=== PATIENT | female | born 1945 | race Caucasian/White ===

== ENCOUNTER 2021-07-20 07:51 | Emergency (ER) | payer MEDICARE ==
[~2021-07-20] VITALS: Ht 162.6 cm; Wt 78.9 kg
[2021-07-20 07:51] VITALS: BP_SYST 176
--- NOTE | 2021-07-20 07:51 | NUR ---
BROUGHT IN BY [facility] AND PLACED IN BED #4 AND TRIAGED. REPORT GIVEN TO VIRI
--- NOTE | 2021-07-20 08:05 | NUR ---
Pt. bib BLS post a fall and hitting tailbone and back of head, superficial laceration noted to back of head, pt. states has had vertigo in past and ussually has a warning before it gets bad and today suddenly became dizzy and went down, does rate pain to tailbone 10/10. Accu check done, bs 80.
--- NOTE | 2021-07-20 08:15 | NUR ---
Irrigated laceration to head with NS, bleeding minimum.
--- NOTE | 2021-07-20 08:20 | NUR ---
ER at bedside examining patient.
[2021-07-20] MEDS ORDERED: NACL 0.9% 1,000 ML IV ONE (08:30)
[2021-07-20 08:56] LABS: BASOPHILS % (AUTO) 0.6 % (0.0-2.0); EOSINOPHILS # (AUTO) 0.2 K/uL (0.0-0.4); HEMATOCRIT 41.2 % (36-48); HEMOGLOBIN 13.8 g/dL (12.0-16.0); LYMPHOCYTES # (AUTO) 1.4 K/uL (1.0-5.5); LYMPHOCYTES % (AUTO) 16.3 % (20.5-51.5); MEAN CORPUSCULAR HEMOGLOBIN 32 pg (27-31); MEAN CORPUSCULAR HGB CONC 34 % (32-36); MEAN CORPUSCULAR VOLUME 95 fL (79.0-98.0); MONOCYTES # (AUTO) 0.8 K/uL (0.0-1.0); NEUTROPHILS # (AUTO) 6.1 K/uL (1.8-7.7); NEUTROPHILS % (AUTO) 72.1 % (40.0-70.0); PLATELET COUNT (AUTO) 179 K/uL (130-430); RED BLOOD CELL COUNT(AUTO) 4.36 MIL/uL (4.2-6.2); RED CELL DISTRIBUTION WIDTH 14.1 % (9.0-15.0); WHITE BLOOD COUNT (AUTO) 8.5 K/uL (4.8-10.8)
[2021-07-20 09:20] LABS: INR 0.9 (0.8-1.2); PROTHROMBIN TIME 9.9 SECS (9.5-12.5)
--- NOTE | 2021-07-20 09:23 | NUR ---
Patient transported to radiology via wheelchair, accompanied by staff, for CT scan.
[2021-07-20 09:59] LABS: ANION GAP 4 (5-15); CALCIUM 8.9 mg/dL (8.4-11.0); CHLORIDE 106 mmol/L (98-107); CREATININE 0.79 mg/dL (0.55-1.30); GLUCOSE 96 mg/dL (70-99); POTASSIUM 3.9 mmol/L (3.5-5.1); SODIUM SERUM 142 mmol/L (136-145); UREA NITROGEN, BLOOD 14 mg/dL (8-21)
[2021-07-20 10:04] LABS: ALANINE AMINOTRANSFERASE 38 U/L (12-78); ALBUMIN 3.3 g/dL (3.4-4.8); ASPARTATE AMINOTRANSFERASE 29 U/L (10-37); TOTAL BILIRUBIN 0.5 mg/dL (0.0-1.0)
[2021-07-20] MEDS ORDERED: HYDROcodone/ACETAMIN 7.5-325 MG TAB PO ONE (10:15)
[2021-07-20 10:17] LABS: BILIRUBIN,URINE NEGATIVE (NEGATIVE); CLARITY/URINE CLEAR (CLEAR); COLOR,URINE YELLOW (YELLOW); GLUCOSE,URINE NEGATIVE (NEGATIVE); KETONES,URINE NEGATIVE (NEGATIVE); LEUKOCYTE ESTERASE ,URINE NEGATIVE (NEGATIVE); NITRITE, URINE NEGATIVE (NEGATIVE); PH,URINE 7.5 (5.0-8.0); PROTEIN URINE NEGATIVE (NEGATIVE); UROBILINOGEN,URINE 0.2 (0.2-1.0)
[2021-07-20 10:18] LABS: BLOOD, URINE TRACE (NEGATIVE)
[2021-07-20 10:28] LABS: BACTERIA,URINE RARE /HPF (None Seen); MUCUS,URINE 1+ /LPF (None Seen); RBC,URINE 0-3 /HPF (0-3); WBC,URINE 0-3 /HPF (0-3)
--- NOTE | 2021-07-20 12:00 | NUR ---
Patient given written and verbal discharge instructions and verbalizes understanding. ER Dr. Cabrera discussed with patient the results and treatment provided. Patient in stable condition. ID arm band removed. IV catheter removed intact and dressing applied, no active bleeding. Patient educated on pain management and to follow up with PMD. Pain Scale 3. Opportunity for questions provided and answered. Medication side effect fact sheet provided.
[2021-07-20 12:02] VITALS: BP_SYST 135
== END 2021-07-20 12:02 | disposition home or self-care (01) ==
LOC: SED 07:51
DX: S01.01XA Laceration without foreign body of scalp, initial encounter (principal); S30.0XXA Contusion of lower back and pelvis, initial encounter; R42 Dizziness and giddiness; I10 Essential (primary) hypertension; Z79.899 Other long term (current) drug therapy; W18.39XA Other fall on same level, initial encounter; Y93.89 Activity, other specified; Y92.89 Other specified places as the place of occurrence of the external cause; Y99.8 Other external cause status
CPT/HCPCS: 36415; 70450; 71045; 72192; 76376; 80053; 81000; 82962; 84484; 85025; 85610; 85730; 93005; 96360; 99285; J7030

== ENCOUNTER 2021-09-12 21:38 | Inpatient (IN) | payer MEDICARE, SELFPAY ==
[~2021-09-12] VITALS: Ht 160 cm; Wt 78.5 kg
[2021-09-12 21:46] VITALS: BP_SYST 168
--- NOTE | 2021-09-12 21:46 | NUR ---
Patient to ER bed 8 to gown for evaluation. Side rails up.
--- NOTE | 2021-09-12 21:47 | NUR ---
PATIENT BROUGHT IN AMBULATORY FROM HOME COMPLAINING OF SHORTNESS OF BREATH STARTING AT 1600 TODAY AND THE STOPPED. THEN PATIENT WAS GETTING READY FOR BED PATIENT REPORTS SOB STARTED AGAIN WITH PALPITATIONS AND LIGHTHEADEDNESS. DENIES ANY CHEST PAIN, FEVER, NAUSEA, VOMITING OR DIARRHEA. DENIES ANY PAIN. PATIENT ABLE TO SPEAK FULL SENTENCES. HR IS 33BPM AND EKG SHOWED HEART BLOCK . PATIENT PLACED ON CHEMISTRY TECHNICAL OFFICER. PATIENT DENIES ANY OTHER SYMPTOMS/INJURIES PER PATIENT OR NOTED. WILL CONTINUE TO MONITOR.
--- NOTE | 2021-09-12 21:50 | NUR ---
# 18 gauge angiocath placed to LEFT AC. Use of asceptic technique. Opsite placed over site. Blood return noted. Blood for lab drawn from site. Flushed with 10 cc of normal saline. No evidence of infiltration noted. Patient tolerated well.
--- NOTE | 2021-09-12 21:51 | NUR ---
ER Dr. Gaspar at bedside examining patient.
--- NOTE | 2021-09-12 22:07 | NUR ---
ER Dr. METZGER at bedside examining patient.
[2021-09-12 22:14] LABS: BASOPHILS # (AUTO) 0.1 K/uL (0.0-0.2); BASOPHILS % (AUTO) 0.9 % (0.0-2.0); EOSINOPHILS # (AUTO) 0.2 K/uL (0.0-0.4); EOSINOPHILS % (AUTO) 1.8 % (0.0-4.0); HEMATOCRIT 43.9 % (36-48); HEMOGLOBIN 14.8 g/dL (12.0-16.0); LYMPHOCYTES # (AUTO) 2.5 K/uL (1.0-5.5); MEAN CORPUSCULAR HEMOGLOBIN 32 pg (27-31); MEAN CORPUSCULAR HGB CONC 34 % (32-36); MEAN CORPUSCULAR VOLUME 95 fL (79.0-98.0); MONOCYTES # (AUTO) 0.9 K/uL (0.0-1.0); MONOCYTES % (AUTO) 9.1 % (1.7-9.3); NEUTROPHILS # (AUTO) 5.9 K/uL (1.8-7.7); NEUTROPHILS % (AUTO) 62.2 % (40.0-70.0); PLATELET COUNT (AUTO) 219 K/uL (130-430); RED BLOOD CELL COUNT(AUTO) 4.65 MIL/uL (4.2-6.2); RED CELL DISTRIBUTION WIDTH 14.1 % (9.0-15.0); WHITE BLOOD COUNT (AUTO) 9.5 K/uL (4.8-10.8)
[2021-09-12 22:22] LABS: INR 0.9 (0.8-1.2); PROTHROMBIN TIME 9.4 SECS (9.5-12.5)
[2021-09-12 22:30] LABS: ANION GAP 13 (5-15); CALCIUM 8.7 mg/dL (8.4-11.0); CHLORIDE 106 mmol/L (98-107); GLUCOSE 133 mg/dL (70-99); POTASSIUM 4.1 mmol/L (3.5-5.1); SODIUM SERUM 142 mmol/L (136-145); UREA NITROGEN, BLOOD 19 mg/dL (8-21)
[2021-09-12 22:35] LABS: ALANINE AMINOTRANSFERASE 128 U/L (12-78); ALBUMIN 3.8 g/dL (3.4-4.8); ASPARTATE AMINOTRANSFERASE 164 U/L (10-37); TOTAL BILIRUBIN 0.5 mg/dL (0.0-1.0)
[2021-09-12] MEDS ORDERED: LORA10TA7 PO (22:48)
[2021-09-12] MEDS ORDERED: TRAZ-250 PO (22:48)
[2021-09-12] MEDS ORDERED: ASPI-1393 PO (22:48)
[2021-09-12] MEDS ORDERED: LISI10TA29 PO (22:48)
[2021-09-12] MEDS ORDERED: LIP40 PO (22:48)
--- NOTE | 2021-09-12 22:49 | NUR ---
Medication reconciliation completed with information provided by patient. Any prior medication reconciliation on file was reviewed and corrected.
[2021-09-13] VITALS (9 sets, daily range): BP systolic 107–148
--- NOTE | 2021-09-13 02:28 | NUR ---
patient moved to hospital bed.
--- NOTE | 2021-09-13 02:37 | NUR ---
Patient will be admitted to care of DR. KENDALL. Admitted to ICU unit. ICU HOLD. Complete and up to date summary report printed. SBAR report to be given at bedside with opportunity for questions.
--- NOTE | 2021-09-13 02:45 | NUR ---
Patient is Full Code
--- NOTE | 2021-09-13 03:30 | NUR ---
Patient resting quietly. No acute distress noted. Vital signs within normal range.
--- NOTE | 2021-09-13 04:32 | NUR ---
Patient resting quietly. No acute distress noted. Vital signs within normal range.
--- NOTE | 2021-09-13 05:32 | NUR ---
Patient resting quietly. No acute distress noted. Vital signs within normal range.
--- NOTE | 2021-09-13 06:07 | NUR ---
report given to NIGEL Odell
--- NOTE | 2021-09-13 06:50 | NUR ---
Dr. Kenney at bedside examining patient
--- NOTE | 2021-09-13 07:02 | NUR ---
report given to NIGEL Hernandez for continuation of care.
--- NOTE | 2021-09-13 07:43 | NUR ---
Dr. Thomas at bedside examining pt.
--- NOTE | 2021-09-13 08:03 | NUR ---
MRSA swab performed at bedside and sent to lab.
--- NOTE | 2021-09-13 08:34 | NUR ---
Spoke with Dr. Redd and updated on pt condition.
[2021-09-13] MEDS: NACL 0.9% 1,000 ML IV SCH ×2 (09:24→19:46)
--- NOTE | 2021-09-13 10:52 | NUR ---
Pt off to OR.
--- NOTE | 2021-09-13 10:52 | NUR ---
and OR nurse at bedside.
--- NOTE | 2021-09-13 10:52 | NUR ---
Patient will be admitted to [facility]. Admitted to ICU unit. Will go to room 126. Belongings list completed. Complete and up to date summary report printed. SBAR report to be given at bedside with opportunity for questions.
[2021-09-13] MEDS ORDERED: ONDANSETRON HCL 4 MG/2 ML VIAL IVP PRN (12:00)
[2021-09-13] MEDS ORDERED: fentaNYL CITRATE/PF 100 MCG/2 ML AMP IVP PRN ×2 (12:00)
[2021-09-13] MEDS ORDERED: METOCLOPRAMIDE HCL 10 MG/2 ML VIAL IVP PRN (12:00)
[2021-09-13] MEDS ORDERED: BACITRACIN 50,000 UNITS VIAL IM ONE (14:00)
[2021-09-13] MEDS ORDERED: BACITRACIN 1 GM OINT TP ONE (14:00)
[2021-09-13] MEDS ORDERED: POLYMYXIN B SULFATE 500,000 UNITS VIAL IV ONE (14:00)
[2021-09-13] MEDS ORDERED: LR 1,000 ML IV.SOLN IV ONE (14:00)
[2021-09-13] MEDS ORDERED: ACETAMINOPHEN 650 MG/20.3 ML UDC PO PRN (14:00)
[2021-09-13] MEDS ORDERED: LIDOCAINE/EPI 1% 1:100000 20 ML VIAL INJ ONE (14:00)
[2021-09-13] MEDS ORDERED: PROPOFOL 200MG/ 20ML VIAL (DIPRIVAN) IV ONE (14:00)
[2021-09-13] MEDS ORDERED: NS 1000 ML IV.SOLN IV ONE (14:00)
[2021-09-13] MEDS ORDERED: CEFAZOLIN 2 GM IVPB PREMIX 50 ML IV ONE (14:00)
[2021-09-13] MEDS ORDERED: WATER FOR IRRIGATION,STERILE 1,000 ML IRRIG.SOLN IR ONE (14:00)
[2021-09-13] MEDS ORDERED: NS IRRIG SOLN 1000 ML IR ONE ×2 (14:00)
[2021-09-13] MEDS ORDERED: MIDAZOLAM HCL 5 MG/ML VIAL (VERSED) IV ONE (14:00)
--- NOTE | 2021-09-13 14:45 | NUR ---
received report from Jing MANNING for continuity of care, patient is admitted at room 206. Left pacemaker dual chamber,patient must lay flat for 8 hours, Left arm should not be raised above head for 3 days,no shower , sponge bath only for 3 days,urine output 120 cc.on room air.bed locked at lowest position, fall and safety precaution in place.
--- NOTE | 2021-09-13 15:43 | NUR ---
CM: Faxed clinical and face sheet to [place]/ [facility] dept.
--- NOTE | 2021-09-13 19:24 | NUR ---
PROVIDED URINAL, 600 CC OF YELLOW URINE.PROVIDED BEDSIDE CARE.CHANGED LINEN
[2021-09-13] MEDS: cephALEXin 500 MG CAPSULE PO SCH (20:22)
[2021-09-14] VITALS (15 sets, daily range): BP systolic 92–143
--- NOTE | 2021-09-14 03:46 | NUR ---
PROVIDED BEDSIDE CARE, CHANGED LINEN
--- NOTE | 2021-09-14 06:49 | NUR ---
ROME KONG IS AT BEDSIDE ASSESSING THE PATIENT.
--- NOTE | 2021-09-14 07:45 | NUR ---
DR. LANCASTER AT BEDSIDE, SAYS PT TO BE DISCHARGED HOME TODAY. SAYS PT TO FOLLOW UP IN 10 DAYS FOR SUTURE REMOVAL. SAYS WANTS TEGADERM DRESSING CHANGED BEFORE PATIENT DISCHARGED HOME.
--- NOTE | 2021-09-14 08:51 | NUR ---
DRESSING TO WOUND LEFT CHEST CHANGED PER ORDER FROM DR. LANCASTER, NO REDNESS OR DRAINAGE NOTED.
[2021-09-14] MEDS ORDERED: ATORVASTATIN 20 MG TABLET PO ONE (09:00)
[2021-09-14] MEDS: cephALEXin 500 MG CAPSULE PO SCH ×3 (09:00→20:59)
[2021-09-14] MEDS ORDERED: ASPIRIN 81 MG TAB.CHEW PO ONE (09:00)
--- NOTE | 2021-09-14 10:13 | NUR ---
PT TO BE TRANSFERRED TO ROOM 102 A, REPORT GIVEN TO DAFNE VILLANUEVA RN. ALL QUESTIONS ANSWERED
[2021-09-14] MEDS: NACL 0.9% 1,000 ML IV SCH ×3 (10:54→21:30)
--- NOTE | 2021-09-14 11:40 | NUR ---
Notes assumed care, received pt from ICU awake and oriented. denies any chest pain or shortness of breath. IVF infusing well. HR 70, paced on the monitor. Dressing dry and intact on the left chest. call light within reach. will monitor.
--- NOTE | 2021-09-14 12:21 | NUR ---
Notes patient stated that she feels dizzy when she gets out of bed, blood pressure is 115/48, hr 70. instruct Patient to get some rest for now and to call if she try to get out of bed. Patient verbalize understnding.
--- NOTE | 2021-09-14 13:34 | NUR ---
CONSULTATION PAGED REASON FOR CONSULTATIONDIZZINESS WAS CONSULT CALED?Y PERSON WHO WAS NOTIFIED:ARIELA BACH TEXT MESSAGED CONSULTING PHYSICIAN:ARIELA BACH BRASS ROLLER SPECIALTY:NEURO BRASS ROLLER PHONE NUMBER:[phone] REQUESTING PHYSICIAN:KAYLYN OVIEDO
--- NOTE | 2021-09-14 13:53 | NUR ---
Notes Resting in bed, family at bedside. Seen by dr. Gomez and made aware that patient feels dizzy when she gets up. Call light within reach.
[2021-09-14] MEDS: MECLIZINE HCL 25 MG TABLET (ANITVERT) PO SCH ×2 (14:59→20:59)
--- NOTE | 2021-09-14 16:00 | NUR ---
Notes patient walked with physical therapy and felt dizzy.
--- NOTE | 2021-09-14 17:22 | NUR ---
Notes resting, denies any pain, no distress
--- NOTE | 2021-09-14 17:30 | NUR ---
MD ROUNDS SEEN BY DR. ARAGON AT BEDSIDE. Addendum: 09/14/21 at 1937 by Denise Kaba RN event happen at 1830 and not 1730.
--- NOTE | 2021-09-14 17:50 | NUR ---
MD SANDERSD PT COMPLAINS OF DIZZINESS AND STATED THAT SHE FEELS LIKE SHE IS HALLUCINATING, HEART RATE WENT DOWN TO 38 BUT IT WENT UP TO 50, PACEMAKER IS CAPTURING ON THE MONITOR. CALLED DR. LANCASTER AND MADE AWARE, ORDERED TO CALL [facility] TO INTERROGATE , SPOKE TO HERMINIO AT [facility] AND SOMEONE WILL COME TO DO THE INTERROGATION. Addendum: 09/14/21 at 1937 by Denise Kaba RN correction:events happen at 1850 and not 1750
[2021-09-14] MEDS ORDERED: MECLIZINE HCL 25 MG TABLET (ANITVERT) PO ONE (18:00)
--- NOTE | 2021-09-14 19:15 | NUR ---
NOTES IN BED RESTING, AWAKE AND ORIENTED, ADVISE NOT TO GET OUT OF BED, AT BEDSIDE. PACEMAKER IS CAPTURING ON AND OFF ON THE MONITOR. DR. LANCASTER MADE AWARE. WILL ENDORSE. B/P 145/48
[2021-09-14] MEDS ORDERED: traZODone HCL 50 MG TABLET (DESYREL) PO SCH (21:00)
[2021-09-15] VITALS: BP_SYST 132
[2021-09-15] MEDS: NACL 0.9% 1,000 ML IV SCH
--- NOTE | 2021-09-15 01:38 | NUR ---
Call placed to [employer] of [facility]: Call placed to [employer] [facility] to ask if patient is schedule for repositioning of pacemaker, and she said patient is schedule at 1230 today. Will arrange for transportation.
--- NOTE | 2021-09-15 01:42 | NUR ---
Patient under [employer]: Checked patient insurance and found out that her medical Insurance is [employer] Call placed to [facility] [employer]ic Rossi to inform her about health Insurance, and she said to let Molded [employer] Operator get an authorization for the procedure and patient has reserve room in [place] today. Also [employer]ic Rossi stated that we have enough time to get authorization because the procedure will be done at 1230 today.
[2021-09-15 07:07] LABS: BASOPHILS # (AUTO) 0.1 K/uL (0.0-0.2); BASOPHILS % (AUTO) 0.7 % (0.0-2.0); EOSINOPHILS # (AUTO) 0.1 K/uL (0.0-0.4); EOSINOPHILS % (AUTO) 1.2 % (0.0-4.0); HEMATOCRIT 41.7 % (36-48); LYMPHOCYTES # (AUTO) 1.6 K/uL (1.0-5.5); LYMPHOCYTES % (AUTO) 18.2 % (20.5-51.5); MEAN CORPUSCULAR HEMOGLOBIN 32 pg (27-31); MEAN CORPUSCULAR HGB CONC 34 % (32-36); MEAN CORPUSCULAR VOLUME 95 fL (79.0-98.0); MONOCYTES # (AUTO) 0.9 K/uL (0.0-1.0); MONOCYTES % (AUTO) 10.7 % (1.7-9.3); NEUTROPHILS # (AUTO) 5.9 K/uL (1.8-7.7); NEUTROPHILS % (AUTO) 69.2 % (40.0-70.0); PLATELET COUNT (AUTO) 157 K/uL (130-430); RED BLOOD CELL COUNT(AUTO) 4.39 MIL/uL (4.2-6.2); RED CELL DISTRIBUTION WIDTH 13.9 % (9.0-15.0); WHITE BLOOD COUNT (AUTO) 8.5 K/uL (4.8-10.8)
[2021-09-15 07:52] LABS: ANION GAP 7 (5-15); CALCIUM 8.2 mg/dL (8.4-11.0); CHLORIDE 111 mmol/L (98-107); CREATININE 0.64 mg/dL (0.55-1.30); GLUCOSE 95 mg/dL (70-99); SODIUM SERUM 143 mmol/L (136-145); UREA NITROGEN, BLOOD 10 mg/dL (8-21)
[2021-09-15 07:55] VITALS: BP_SYST 99
--- NOTE | 2021-09-15 07:55 | NUR ---
INITIAL ROUNDS Received pt AAOx4, no s/s resp distress, no c/o pain or discomfort, no c/o dizziness at this time. Plan of care for the day reviewed with pt-pt verbalized her understanding. Noted pt's IV to her right arm infiltrated, IV removed, arm elevated on pillow-will place new IV. Pain management, disease process, skin and safety discussed-teach back done. Call light within reach.
[2021-09-15] MEDS ORDERED: ATORVASTATIN 20 MG TABLET PO SCH (09:00)
[2021-09-15] MEDS ORDERED: ASPIRIN 81 MG TAB.CHEW PO SCH (09:00)
[2021-09-15] MEDS: MECLIZINE HCL 25 MG TABLET (ANITVERT) PO SCH (09:06)
[2021-09-15] MEDS: cephALEXin 500 MG CAPSULE PO SCH (09:06)
[2021-09-15 09:45] VITALS: BP_SYST 99
--- NOTE | 2021-09-15 10:03 | NUR ---
Discharge Planning: LAURA arranged transport with [facility] [phone] ALS Will Call to [facility] [phone]. Pending bed at [facility] as CM waiting to speak to [facility]. Addendum: 09/15/21 at 1200 by Clemencia Ledezma DP TERRELL called [facility] [phone] to give Auth# from [facility] #[id number]. Dispatched stated transport is delayed 20min, LAURA made CM aware.
--- NOTE | 2021-09-15 10:19 | NUR ---
DR LANCASTER RECEIVED CALL FROM DR LANCASTER. PATIENT IS ASSIGNED TO ROOM 252-B. DCP / CM NOTIFIED. REQUESTED CD FROM RADIOLOGY. [facility] CALLED PT IS ON WILL CALL.
--- NOTE | 2021-09-15 10:25 | NUR ---
[facility] AT 11:30
--- NOTE | 2021-09-15 10:27 | NUR ---
After 2 hours on hold w/ [facility], spoke to Eliz [phone]. She will get authorization for transfer from her MD and call me back w/authorization for [facility] and [facility].
[2021-09-15 11:34] VITALS: BP_SYST 120
--- NOTE | 2021-09-15 11:45 | NUR ---
REPORT GIVEN Report given to Timoteo MANNING at [facility].
--- NOTE | 2021-09-15 13:40 | NUR ---
PT TRANSFERRED Report given to Timoteo at [facility]. Transfer packet with Transfer Orders and Medication Reconciliation form given to ACLS RN and EMT with report. [employer]care on pacemaker explained and provided. [facility] ID band removed, replaced with ID band with pt's name and . All belongings sent with patient. Patient left floor via gurney escorted by EMT and ACLS RN in no distress.
--- NOTE | 2021-09-15 14:47 | NUR ---
Nutrition Update : Ren Scale: 17 noted Pt admitted for Complete heart block. Diet: NPO BMI: 30.6 kg/m2 RD to follow per nutrition care standards.
--- NOTE | 2021-09-15 15:53 | NUR ---
At 11:30 spoke alonzo Wellington from [employer]-she gave an authorization # for [facility]-#[id number]. This auth # is also good for [facility], this # was called to [facility]. [facility] did not arrive until 1:10-after multiple calls-patient left for [facility] at 1:45PM.
== END 2021-09-15 13:40 | disposition short-term general hospital (02) | DRG 262 ==
LOC: SED 21:38 → SIC 09-13 02:29 → STU 09-14 10:51
PROVIDERS: ADMIT Preventive Medicine Preventive Medicine/Occupational Environmental Medicine; ATTEND Preventive Medicine Preventive Medicine/Occupational Environmental Medicine
PROC: 02HK3JZ Insertion of Pacemaker Lead into Right Ventricle, Percutaneous Approach (ICD-10-PCS; 2021-09-13)
PROC: 02H63JZ Insertion of Pacemaker Lead into Right Atrium, Percutaneous Approach (ICD-10-PCS; principal; 2021-09-13 11:00)
DX: I44.2 Atrioventricular block, complete (principal); I65.29 Occlusion and stenosis of unspecified carotid artery; I10 Essential (primary) hypertension; E78.5 Hyperlipidemia, unspecified; Z96.652 Presence of left artificial knee joint; G47.00 Insomnia, unspecified; R73.03 Prediabetes; E78.00 Pure hypercholesterolemia, unspecified; R74.01 Elevation of levels of liver transaminase levels; R00.1 Bradycardia, unspecified; Z20.822 Contact with and (suspected) exposure to COVID-19; Z79.899 Other long term (current) drug therapy; Z79.82 Long term (current) use of aspirin; Z87.891 Personal history of nicotine dependence; Z95.0 Presence of cardiac pacemaker
CPT/HCPCS: 36415; 71045; 76000; 80048; 80053; 83880; 84443; 84484; 85025; 85610-TC; 85730-TC; 87081; 93005; 93880; 99285; G0378; J0690; J2250; J2704; J7030; J7120; J8597; Q9967